=== PATIENT | male | born 1935 | race Caucasian/White ===

== ENCOUNTER → 2017-06-27 11:54 | Outpatient (CLI) | payer OTHER ==
[~2017-06-27] VITALS: Ht 175.3 cm; Wt 85.5 kg
--- NOTE | ~2017-06-27 | HEMODYNAMI ---
PATIENT:DEONDRE SIMS MEDICAL RECORD: [id number] : 33 LOCATION:[facility] ADMISSION DATE: 06/27/17 Generatedon:06/27/201714:53 Patient name: DEONDRE SIMS Patient #: [id number] SSN: D OB: 1935 Date of study: 06/27/2017 Page: Of Hemodynamic Procedure Report Patient Data Patient Demographics Procedure consent was obtained First Name: DEONDRE Gender: Male Last Name: BETHANY : 1935 Middle Initial: R Age: 81 year(s) Patient #: [id number] Race: Unknown Additional ID: [id number] Contact details Address: [address] [place] [address] State: [place] City: [place] Zip code: [address] Past Medical History Allergies: No known allergies Admission Admission Data Admission Date: 06/27/2017 Admission Time: 11:54 Admit Source: Other Lab Results Lab Result Date: 06/27/2017 Lab Result Time: 12:25 Biochemistry Name Units Result Min Max BUN mg/dl 32 --(----)-* 7 18 Creatinine mg/dl 1 --(--*-)-- 0.6 1.3 CBC Name Units Result Min Max Hematocrit % 37.9 *-(----)-- 42 54 Hemoglobin g/dl 12.6 -*(----)-- 13.5 17.5 Procedure Procedure Types Cath Procedure Diagnostic Procedure C Coronaries only Aortic Root Angiography Sedation Charges Moderate Sedation up to 30 minutes Peripheral Cath Diagnostic Procedure 4-Vessel Carotid Cervical Uni Subclavian Arteriogram Uni Procedure Description Procedure Date Procedure Date: 06/27/2017 Procedure Start Time: 14:17 Procedure End Time: 14:52 Procedure Staff Name Function Parveen Aponte MD Performing Physician Aram Adame RT Monitor Rupinder Woods RT Scrub Junaid Armas RN Nurse Procedure Data Cath Procedure Fluoroscopy Diagnostic fluoroscopy Total fluoroscopy Time: 4.4 time: 4.4 min min Diagnostic fluoroscopy Total fluoroscopy dose: 666 dose: 666 mGy mGy Contrast Material Contrast Material Type Amount (ml) Isovue 300 105 Entry Location Entry Primary Successful Side Size Upsize Upsize Entry Closure Ramirez ccessful Closure Location (Fr) 1 (Fr) 2 (Fr) Remarks Device Remarks Radial Right 6 Fr Mechanical artery Short Compression Femoral Right 5 Fr Exoseal artery Estimated blood loss: 5 ml Diagnostic catheters Device Type Used For End Catheter Placement MULTIPACK Pigtail 5 Fr Procedure catheter MULTIPACK JL 4.0 5Fr Procedure catheter MULTIPACK 3DRC 5Fr Procedure catheter MULTIPACK 3DRC 5Fr Procedure catheter DIAGNOSTIC Pritesh 110cm Procedure 5Fr catheter ([id number]) Procedure Complications No complications Procedure Medications Medication Administration Route Dosage 0.9% NaCl I.V. 100 ml/hr Oxygen etCO2 Nasal cannula 2 l/min Heparin Flush Bag added to field 2 bags (1000units/500ml NS) Lidocaine 2% added to field 20 Radial Cocktail added to field 1 syringe (Verapomil 2mg/Nitro 400mcg/Heparin 1500units) Versed I.V. 1 mg Fentanyl I.V. 50 mcg Radial Cocktail I.A. 1 syringe (Verapomil 2mg/Nitro 400mcg/Heparin 1500units) Versed I.V. 0.5 mg Fentanyl I.V. 25 mcg Fentanyl I.V. 25 mcg Versed I.V. 0.5 mg Hemodynamics Rest HGB: 12.6 (g/dl) Heart Rate: 56 (bpm) Snapshots Pre Cath Intra NCS Post Cath Vital Signs Time Heart Resp SPO2 etCO2 NIBP Rhythm Pain Sedation Rate (ipm) (%) (mmHg) (mmHg) Status Level (bpm) 14:12:50 55 15 93 0 118/64(92) NSR 0 (11) 10(A) , No pain 14:17:29 55 13 93 9.7 118/63(94) NSR 0 (11) 10(A) , No pain 14:22:09 56 16 96 33.7 97/50(73) NSR 0 (11) 10(A) , No pain 14:26:42 65 15 96 35.9 112/64(91) NSR 0 (11) 10(A) , No pain 14:31:20 54 14 92 0 104/52(75) NSR 0 (11) 9(A) , No pain 14:35:55 56 9 90 0 110/63(84) NSR 0 (11) 9(A) , No pain 14:40:31 50 10 96 0 106/56(86) NSR 0 (11) 9(A) , No pain 14:45:06 49 13 97 10.4 113/61(87) NSR 0 (11) 9(A) , No pain 14:50:05 50 15 96 26.9 Measuring NSR 0 (11) 9(A) , No pain 14:50:13 51 15 98 29.1 118/61(95) NSR 0 (11) 9(A) , No pain Medications Time Medication Route Dose Verified Delivered Reason Notes Effectiveness by by 14:10:24 0.9% NaCl I.V. 100 Junaid Junaid Per ml/hr Pawel Armas physician RN RN 14:10:34 Oxygen etCO2 2 l/min Junaid Junaid Per Nasal Pawel Armas physician cannula RN RN 14:10:46 Heparin Flush added 2 bags Junaid Junaid used for Bag to Pawel Armas procedure (1000units/500ml RN RN NS) 14:11:04 Lidocaine 2% added 20ml Junaid Junaid for local to vial Lorigan Lorigan anesthetic field MAST RN 14:11:28 Radial Cocktail added 1 Junaid Junaid used for (Verapomil to syringe Pawel Armas procedure 2mg/Nitro field MAST RN 400mcg/Heparin 1500units) 14:15:53 Versed I.V. 1 mg Junaid Junaid for sedation Pawel Armas RN RN 14:16:25 Fentanyl I.V. 50 mcg Junaid Junaid for sedation Pawel Armas RN RN 14:21:53 Radial Cocktail I.A. 1 Junaid Parveen for (Verapomil syringe Pawel subramanian 2mg/Nitro RN 400mcg/Heparin 1500units) 14:25:28 Versed I.V. 0.5 mg Junaid Junaid for sedation Pawel Armas RN RN 14:25:36 Fentanyl I.V. 25 mcg Junaid Junaid for sedation Pawel Armas RN RN 14:27:46 Fentanyl I.V. 25 mcg Junaid Junaid for sedation Pawel Armas RN RN 14:27:55 Versed I.V. 0.5 mg Junaid Junaid for sedation Lorigan Lorigan RN aquatics director Log Time Note 13:53:03 Informed consent obtained and on chart 13:53:07 Admit Source: Other 13:53:35 Diagnostic Cath status Elective 13:53:44 Junaid Armas RN sent for patient. Start room use. 13:53:45 Time tracking: Regular hours (M-F 7:00 - 5:00) 13:53:49 Plan of Care:Hemodynamics will remain stable., Cardiac rhythm will remain stable., Comfort level will be maintained., Respiratory function will remain adequate., Patient/ family verbilizes understanding of procedure., Procedure tolerated without complication., Recovers from procedure without complications.. 13:54:11 H&P Date Dictated: 06/22/2017 Within 30 days and on chart., H&P Addendum completed by physician on day of procedure. (MUST COMPLETE FOR ALL OUTPATIENTS). 13:56:41 Lab Result : Hemoglobin 12.6 g/dl 13:56:41 Lab Result : Creatinine 1 mg/dl 13:56:41 Lab Result : BUN 32 mg/dl 13:56:41 Lab Result : Hematocrit 37.9 % 14:00:00 Patient received from Pre/Post Procedure Room to CCL 1 Alert and oriented. Tansferred to table in Supine position. 14:00:01 Warm blankets applied, and daljit hugger turned on for patient comfort. 14:00:02 Correct patient and procedure confirmed by team. 14:00:03 ECG and BP/O2 sat monitors applied to patient. 14:10:24 0.9% NaCl 100 ml/hr I.V. was administered by Junaid Armas RN; Per physician; 14:10:34 Oxygen 2 l/min etCO2 Nasal cannula was administered by Junaid Armas RN; Per physician; 14:10:46 Heparin Flush Bag (1000units/500ml NS) 2 bags added to field was administered by Junaid Armas RN; used for procedure; 14:11:04 Lidocaine 2% 20ml vial added to field was administered by Junaid Armas RN; for local anesthetic; 14:11:28 Radial Cocktail (Verapomil 2mg/Nitro 400mcg/Heparin 1500units) 1 syringe added to field was administered by Junaid Armas RN; used for procedure; 14:11:55 Vital chart was started 14:11:59 Baseline sample Acquired. 14:12:03 Rhythm: sinus rhythm 14:12:05 Full Disclosure recording started 14:12:07 Pre-procedure instructions explained to patient. 14:12:09 Family in waiting room. 14:12:10 Patient NPO since Midnight. 14:12:37 Patient allergic to No known allergies 14:12:51 Is the patient allergic to Iodine/contrast media? No. 14:12:53 Is patient on blood thinner?No 14:13:00 Patient diabetic? No. 14:13:03 Previous problem with sedation/anesthesia? No . 14:13:04 Snore? Yes 14:13:05 Sleep apnea? No 14:13:06 Deviated septum? No 14:13:07 Opens mouth fully? Yes 14:13:08 Sticks out tongue? Yes 14:13:10 Airway obstruction? No ? 14:13:14 Dentures? No ? 14:13:17 Modified Raman's test Ulnar < 7 seconds 14:13:39 Patient pain scale 0/10 ?. 14:13:48 IV patent on arrival in left forearm with 0.9% NaCl at [facility]. 14:13:50 Lab results completed and on chart. 14:13:53 Right Radial & Right Groin area was prepped with chlora-prep and draped in sterile fashion 14:13:54 Alarms reviewed by R. N. 14:13:57 Sharps counted by scrub and verified by R.N. 14:13:59 Use device set Radial Dx or PCI 14:13:59 ACIST Syringe (38354) opened to sterile field. 14:14:00 Medline Cath Pack ([id number]) opened to sterile field. 14:14:01 ACIST Hand Control (33019) opened to sterile field. 14:14:02 ACIST Manifold (71427) opened to sterile field. 14:14:02 Tegaderm 4 x 4 (1626W) opened to sterile field. 14:14:03 MBrace Wrist Support ([id number]) opened to sterile field. 14:14:04 Bag Decanter (2001S) opened to sterile field. 14:14:05 DIAGNOSTIC WIRE .035 260cm J wire (961232) opened to sterile field. 14:14:08 SHEATH 6Fr Prelude Radial ([id number]) opened to sterile field. 14:14:17 Physician arrived 14:14:18 --------ALL STOP TIME OUT------ 14::18 Final Timeout: patient, procedure, and site verified with staff and physician. All members of the team are in agreement. 14:14:20 Right Radial & Right Groin site verified by team. 14:14:21 Physical assessment completed. ASA score P 2 - A patient with mild systemic disease as per Parveen Aponte MD. 14:14:24 Sedation plan: IV Moderate Sedation Medication:Versed, Fentanyl 14:15:53 Versed 1 mg I.V. was administered by Junaid Armas RN; for sedation; 14:16:25 Fentanyl 50 mcg I.V. was administered by Junaid Armas RN; for sedation; 14:17:13 Zero performed for pressure channel P1 14:17:23 Procedure started. 14:17:27 Local anesthetic to right radial artery with Lidocaine 2% by Parveen Aponte MD.INITIAL ACCESS ONLY 14:20:57 A 6 Fr Short sheath was inserted into the Right Radial artery 14:21:53 Radial Cocktail (Verapomil 2mg/Nitro 400mcg/Heparin 1500units) 1 syringe I.A. was administered by Parveen Aponte MD; for vasodilation; 14:22:10 A DIAGNOSTIC Pritesh 110cm 5Fr catheter (125401) was advanced over the wire and used for Procedure. 14:22:53 Catheter removed. unable to cannulate vessel. 14:24:56 Local anesthetic to right femoral artery with Lidocaine 2% by Parveen Aponte MD.ADDITIONAL ACCESS 14:25:08 SHEATH Prelude 5Fr 0.035 (YSQ-0X-15-035) opened to sterile field. 14:25:26 A 5 Fr sheath was inserted into the Right Femoral artery 14:25:28 Versed 0.5 mg I.V. was administered by Junaid Armas RN; for sedation; 14:25:31 Use device set Multipack Set 14:25:36 Fentanyl 25 mcg I.V. was administered by Junaid Armas RN; for sedation; 14:25:39 DIAGNOSTIC Multipack 5Fr catheter set ([id number]) opened to sterile field. 14:26:55 A MULTIPACK Pigtail 5 Fr catheter was advanced over the wire and used for Procedure. 14:27:46 Fentanyl 25 mcg I.V. was administered by Junaid Armas RN; for sedation; 14:27:55 Versed 0.5 mg I.V. was administered by Junaid Armas RN; for sedation; 14:28:39 Aortic Root visualized 14:31:02 Catheter exchanged over wire. 14:31:36 A MULTIPACK JL 4.0 5Fr catheter was advanced over the wire and used for Procedure. 14:32:32 LCA angiography performed. 14:33:09 Catheter exchanged over wire. 14:33:35 A MULTIPACK 3DRC 5Fr catheter was advanced over the wire and used for Procedure. 14:34:21 RCA angiography performed. 14:35:29 Right subclavian angiography performed 14:43:57 Catheter removed. 14:44:10 TR BAND Standard ([id number]) opened to sterile field. 14:44:17 EXOSEAL 5Fr (EX500) opened to sterile field. 14:46:00 Procedure type changed to Cath procedure, Diagnostic procedure, LHC, Coronaries only, Aortic Root Angiography, Sedation Charges, Moderate Sedation up to 30 minutes, Peripheral Cath Diagnostic Procedure, 4-Vessel, Carotid Cervical Uni, Subclavian Arteriogram Uni 14:46:08 A MULTIPACK 3DRC 5Fr catheter was advanced over the wire and used for Procedure. 14:46:17 Left subclavian angiography performed 14:46:48 Left carotid angiography performed. 14:47:31 Catheter removed. 14:47:39 Sheath removed intact; hemostasis achieved with Exoseal to the Right Femoral artery. 14:47:40 Procedure ended.(Physican Out) 14:47:52 Sheath removed intact; hemostasis achieved with Mechanical Compression to the Right Radial artery. 14:47:58 Fluoroscopy time 04.40 minutes. 14:48:02 Flurop Dose total: 666 14:48:02 Fluoroscopy dose: 666 mGy 14:48:05 Contrast amount:Isovue 300 105ml. 14:48:07 Sharps counted by scrub and verified by R.N. 14:48:09 TR band inflated with 12cc of air. 14:48:11 Insertion/operative site no bleeding no hematoma. 14:48:14 Post-op/insertion site Right Femoral artery dressed using a 4 x 4 and Tegaderm. 14:48:17 Post right femoral artery:stable, soft, clean and dry 14:48:18 Post Procedure Pulses reassessed and unchanged 14:48:22 Post-procedure physical assessment completed. ASA score P 2 - A patient with mild systemic disease as per Parveen Aponte MD. 14:48:25 Post procedure rhythm: unchanged. 14:48:28 Estimated blood loss: 5 ml 14:48:29 Post procedure instruction explained to patient.Patient verbalizes understanding. 14:48:30 Patient needs reinforcement of post procedure teaching. 14:51:45 Procedure and supply charges have been captured, reviewed, submitted and are correct. 14:52:36 Procedure Complication : No complications 14:52:39 Vital chart was stopped 14:52:39 See physician's report for complete and final results. 14:52:41 Report given to Pre/Post Procedure Room. 14:52:43 Patient transfered to Pre/Post Procedure Room with Stretcher. 14:52:45 Procedure ended. 14:52:45 Full Disclosure recording stopped 14:52:51 End room use (Document Last) Device Usage Item Name Manufacture Quantity Catalog Number Hospital Part Current M inimal Lot# / Charge Number Stock Stock Serial# Code ACIST Syringe Acist 1 [id number] [id number] 516016 975162 2 0 (33438) [employer] Medline Cath Cardinal 1 [id number] 653158 89789 863209 5 Pack Health ([id number]) ACIST Hand Acist 1 69593 167866 763711 070856 5 Control (19416) [employer] Inc ACIST Manifold Acist 1 20677 980121 017921 258080 5 (46133) [employer] Systems Inc Tegaderm 4 x 4 3M 1 1626W 360377 593507 854907 5 (1626W) MBrace Wrist Advanced 1 140-0250-00 400890 21601 013252 5 Support Vascular ([id number]) Dynamics Bag Decanter Microtek 1 2001S 132430 57296 292422 5 (2001S) Medical Inc. DIAGNOSTIC WIRE St Serjio 1 791165 320403 774750 867049 3 0 .035 260cm J wire (347041) SHEATH 6Fr Merit 1 [id number] 643304 169257 714156 5 Prelude Radial Medical ([id number]) SHEATH Prelude Merit 1 IQF-4H-14-035 585727 212775 864502 5 5Fr 0.035 Medical (GNH-9N-85-035) DIAGNOSTIC Cardinal 1 [id number] 347353 23479 322036 3 0 Multipack 5Fr Health catheter set (WU0851) MULTIPACK Cardinal 1 105876 5 Pigtail 5 Fr Health catheter MULTIPACK JL Cardinal 1 033181 5 4.0 5Fr Health catheter MULTIPACK 3DRC Cardinal 1 488102 5 5Fr catheter Health TR BAND Terumo 1 [id number] 888607 187261 477962 4 0 Standard ([id number]) EXOSEAL 5Fr Cardinal 1 EX500 245164 452893 792049 1 0 (EX500) Health DIAGNOSTIC Terumo 1 82-3661 031416 748109 209081 5 Pritesh 110cm 5Fr catheter (813628) Signature Audit [place] Stage Time Signature Unsigned Intra-Procedure 06/27/2017 Aram Adame 2:53:29 PM RT(R) Signatures Monitor : Aram Adame RT Signature : Date : Time : [place] [id number] [place] [address]
[~2017-06-27 11:54] MED LIST: ASPIRIN81 MG PO; COLACE100 MG PO; CORDARONE200 MG PO; DIOVAN160 MG PO; HCTZ25 MG PO; HEMOCYTE PLUS C1 CAP PO; K-TAB10 MEQ PO; NORVASC5 MG PO; PERCOCET 5-3251 TAB PO; PROTONIX40 MG PO; SYNTHROID25 MCG PO
[2017-06-27 12:25] VITALS: BP 145/66; Ht 175.3 cm; Wt 85.5 kg
[2017-06-27 12:33] LABS: BASOPHILS 0.4 % (0-2); EOSINOPHILS 1.5 % (0-7); HEMATOCRIT 37.9 % (42.0-54.0); HEMOGLOBIN 12.6 g/dL (13.5-17.5); IMMATURE GRANULOCYTES 0.4 % (0-5); MCH 29.2 pg (26.0-34.0); MCHC 33.2 g/dL (31.0-37.0); MCV 87.7 fL (80.0-100.0); MEAN PLATELET VOLUME 10.3 fL (7.4-10.4); MONOCYTES 10.9 % (2-11); NEUTROPHILS 71.8 % (40-80); PLATELET COUNT 154 10x3/uL (130-400); RBC 4.32 10x6/uL (4.20-6.10); RDW 14.1 % (11.5-14.5); WBC 5.3 10x3/uL (4.8-10.8)
[2017-06-27 12:41] LABS: CALC OSMOLALITY 277 mosm/kg (275-300); CALCIUM 8.7 mg/dL (8.5-10.1); CARBON DIOXIDE 23.8 mmol/L (21.0-32.0); CHLORIDE - SERUM 103 mmol/L (98-107); GLUCOSE 87 mg/dL (74-106); POTASSIUM - SERUM 4.6 mmol/L (3.5-5.1); SODIUM 136 mmol/L (136-145); UREA NITROGEN 32 mg/dL (7-18); eGFR NON AFRICAN AMERICAN 76 mL/min (90-120)
== END | disposition home or self-care (01) ==
LOC: D.CATH 11:54
PROVIDERS: Internal Medicine Cardiovascular Disease
DX: I35.2 Nonrheumatic aortic (valve) stenosis with insufficiency (principal); I25.10 Atherosclerotic heart disease of native coronary artery without angina pectoris; I65.21 Occlusion and stenosis of right carotid artery; Z01.812 Encounter for preprocedural laboratory examination

== ENCOUNTER → 2017-07-14 12:19 | Outpatient (CLI) | payer OTHER ==
[2017-06-27 12:25] VITALS: BMI 27.8
== END | disposition home or self-care (01) ==
LOC: D.CT 12:19
DX: I77.1 Stricture of artery (principal)

== ENCOUNTER 2017-07-15 11:00 | Inpatient (IN) | payer OTHER ==
[~2017-07-15] VITALS: Ht 175.3 cm; Wt 90.9 kg
--- NOTE | ~2017-07-15 | OP ---
PATIENT NAME: DEONDRE SIMS MEDICAL RECORD: [id number] :33 LOCATION:D.I D.CV06 ADMISSION DATE:07/20/17 SURGEON: JALEN CEVALLOS MD DATE OF OPERATION: 07/20/2017 SURGEON: Jalen Cevallos MD MAINTENANCE DEPARTMENT TECHNICIAN: Nolvia Anaya MD and TIFFANIE Clark OPERATION PERFORMED: 1. Aortic valve replacement with 21 mm pericardial bioprosthesis. 2. Coronary artery bypass graft times 2 (left internal mammary artery to LAD and reverse saphenous vein graft from aorta to first obtuse marginal). PREOPERATIVE DIAGNOSIS: Coronary artery disease and aortic stenosis, aortic insufficiency. POSTOPERATIVE DIAGNOSIS: Coronary artery disease and aortic stenosis, aortic insufficiency. ANESTHESIA: General endotracheal anesthesia. ESTIMATED BLOOD LOSS: Total cardiopulmonary bypass with Cell Saver retransfusion 1 pack platelets. No packed red blood cells transfused. OPERATIVE SPECIMEN: Aortic valve leaflets. COMPLICATIONS: None. CONDITION: Stable. DISPOSITION: CV ICU. OPERATIVE FINDINGS: 1. Transesophageal echocardiography confirmed aortic stenosis and aortic insufficiency with mild mitral regurgitation. 2. Good quality left internal mammary artery, the LAD was a severely diseased vessel throughout the mid portion with the best site for anastomosis about 2 cm from the apex. At this site after opening the artery, a 1 mm probe would not pass proximally in the vessel more than about 0.5 cm, a 1.5 mm probe did pass from here down to the apex and there was good Doppler flow after anastomosis and after removing the cross clamp. 3. The second obtuse marginal was much smaller than the first and non-bypassable. The first vessel was a 2.5 mm severely diseased vessel. 4. Aortic valve leaflets were calcified. The annulus was mostly preserved. Some debridement was necessary. Interrupted pledgeted valve sutures from the ventricular to the aortic side were used. 5. Transesophageal echocardiography at the conclusion of the case revealed no perivalvular aortic leak. OPERATIVE INDICATION: Aortic stenosis, coronary artery disease with near syncope, possible palpitations. OPERATIVE SUMMARY IN DETAIL: The patient was brought to the operative suite. General anesthesia was obtained. The patient was prepped and draped. Greater OPERATIVE REPORT [id number] DEONDRE SIMS saphenous vein was harvested in the right leg using bridging incisions, side branches were clipped or tied. Leg was irrigated and closed after placement of a drain. Median sternotomy incision was made. Subcutaneous tissue divided by electrocautery. The sternum was divided with a saw. The left hemisternum was elevated. The left pleural cavity was entered. Left internal mammary vein was taken as a pedicle graft. The sternal retractor was placed. Pericardium was opened. Heparin was given. The aorta was cannulated. Dual-stage venous cannula was inserted. The internal mammary was clipped distally and made ready for anastomosis. The patient was placed on cardiopulmonary bypass. The sites for distal anastomoses were selected. Retrograde cardioplegia cannula was inserted. The patient was cooled. Crossclamp was placed. The angiographic needle was used in the anterior ascending aorta; however, due to aortic insufficiency. This was aborted and retrograde cardioplegia was given. The left ventricular vent was placed to the right superior pulmonary vein and then the transverse aortotomy was performed. Direct coronary cardioplegia was given in the left and right coronary ostia. Distal anastomosis of the vein to artery was performed in standard technique. Then, the valve was debrided after removing the leaflets carefully irrigated to remove all loose debris, sized appropriately. Suture was placed for ventricular aortic side, through the valve sewing ring valve carefully lowered in place and sutures tied. Inspecting the bowel, there was no subvalvular obstruction. The valve was well seated. The aortotomy was closed. The patient was rewarmed. Distal anastomosis to the left internal mammary artery to LAD was performed. A single punch site was used for proximal anastomosis and with the patient in steep Trendelenburg position, left ventricular apex was de-aired before and after removing the crossclamp and the crossclamp was removed. The proximal anastomosis site was tied down. The old deair site was later oversewn. The patient resumed a spontaneous rhythm. Fully rewarmed, weaned cardiopulmonary bypass and was stable. The patient was decannulated. All cannulation sites were oversewn. Protamine was given. The grafts lay appropriately. Thorough irrigation was undertaken. Ventricular pacing wires were placed. Drains were placed in the mediastinum, left pleural cavity. Pericardial fat was loosely reapproximated. Left chest was evacuated and irrigated. The internal mammary harvest site was without bleeding. Sternum was closed with wires. The patient was stable. The chest closed. Fascia was closed. Subcutaneous tissue was closed. Skin was closed. Dermabond was placed. The needle, sponge counts were reported as correct. The patient was taken to the ICU in stable condition. TRANSINT:[id number] Voice Confirmation ID: [id number] DOCUMENT ID: [id number] JALEN CEVALLOS MD at 1109 CC: MAYA SUTTON M.D. [id number] DICTATION DATE: 07/20/171705 CAPTAIN CANNERY TENDER: 07/21/17 0006 ADM IN [facility] [address] [place] [address]
--- NOTE | ~2017-07-15 | TEE ---
PATIENT:DEONDRE SMIS MEDICAL RECORD: [id number] LOCATION:[place] [address] AGE OF PATIENT: 82 ADMISSION DATE: 07/20/17 SEX: M REFERRING PHYSICIAN: INTERPRETING PHYSICIAN: RENETTA SELF MD TRANSESOPHAGEAL ECHOCARDIOGRAM Date: 07/20/17 [place] CHARGE Y INDICATIONS: CABG/AVR PREMEDICATIONS: PATIENT'S RESPONSE PROCEDURE DOPPLER MEASUREMENTS: LVIT LA PA RA LVOT RVOT Asc. Ao AV Gradient Peak AV Mean AV Area MV Gradient Peak MV Mean MV Area INTERPRETATION: Doppler: 2-D: COLOR FLOW DOPPLER NORMAL SALINE STUDY: MISCELLANOUS: DIAGNOSIS: PLAN: Pairer Inspector:2 Dr. Aponte Transformation Analyst: 1 GRAEMEMARY KIM COMMENTS: DATE OF SERVICE: 07/20/2017 PROCEDURE: Transesophageal echo evaluation of valvular structures during aortic valve replacement and coronary bypass graft surgery. FINDINGS: 1. Left ventricular chamber size is within normal limits. Left ventricular systolic function is normal. Overall ejection fraction estimated at 60%. 2. Left atrium, right atrium, and right ventricle chamber sizes are mildly TRANSESOPHAGEAL ECHOCARDIOGRAM REPORT [id number] WILBERT SIMS dilated. 2. Valvular structures: Aortic valve demonstrates severe calcific aortic stenosis. This is not a new finding. The patient is scheduled for aortic valve replacement. The remaining valvular structures have normal structure and motion. 3. Doppler interrogation elsewise reveals mild mitral regurgitation, moderate aortic insufficiency. No other valvular insufficiency or stenosis. 4. No evidence of pericardial effusion or left ventricular thrombus. TRANSINT:[id number] Voice Confirmation ID: [id number] DOCUMENT ID: [id number] at 1444 CC: [id number] DICTATION DATE: 07/20/17 1554 MEDICAL RECORD CODER: 07/21/17 1232 ADM IN [facility] [address] [place] [address]
--- NOTE | ~2017-07-15 | EC ---
PATIENT:DEONDRE SIMS DATE OF SERVICE: 07/20/17 SEX: M MEDICAL RECORD: [id number] DATE OF : 33 LOCATION:[facility] D.230 AGE OF PATIENT: 82 ADMISSION DATE: 07/20/17 REFERRING PHYSICIAN: INTERPRETING PHYSICIAN: RENETTA SELF MD ECHOCARDIOGRAM REPORT ECHO CHARGES 4 ECHO COMPLETE Date: 07/29 CLINICAL DIAGNOSIS: LVF,PERICARDIAL EFFUSION,POST CABG ECHOCARDIOGRAPHIC MEASUREMENTS (adult normal given) AC root (d.<3.7cm) 3.7 cm LV Septum d (<1.2 cm> 1.5 cm Valve Excursion 1.6 cm LV Septum (systole) 1.8 cm Left Atria (s.<4.0cm> 3.9 cm LVPW d(<1.2cm) 1.7 cm RV (d.<2.3cm) 3.9 cm LVPW (sytole) 2.4 cm LV diastole(<5.6CM) 5.2 cm MV E-F(>70mm/sec) cm LV systole 2.6 cm LVOT Diameter 1.8 cm MV exc.(>10mm) 1.7 cm Est.ejection fraction (50-75%) % DOPPLER: LVIT cm/sec A 75.0 cm/sec E 99.0 cm/sec LA cm/sec RVSP 28 mmHg LVOT 90 cm/sec AOP1/2T m/s Asc. Ao 147 cm/sec RVOT 96 cm/sec RA cm/sec PA 130 cm/sec AV Gradient Peak 8.69 mmHg AV Mean 5.25 mmHg AV Area 1.5 cm MV Gradient Peak 7.17 mmHg MV Mean 2.04 mmHg MV Area cm COMMENTS: Liner Helper: Connor JAIN Supervisor Cell Maintenance: 2 Dr. Aponte TAPE# PACS Pericardial Effusion N DATE OF SERVICE: 07/29/2017 Echocardiogram FINDINGS: 1. Left ventricular chamber size is within normal limits. Left ventricular systolic function is normal. Overall ejection fraction estimated at 60%. 2. The left atrium is mildly dilated at 4.1 cm. Right atrium and right ventricular chamber sizes are as well mildly dilated. 3. Valvular structures have normal structure and motion. ECHOCARDIOGRAM REPORT [id number] DEONDRE SIMS 4. Doppler interrogation reveals mild tricuspid regurgitation, no other valvular insufficiency or stenosis. 5. No evidence of pericardial effusion or left ventricular thrombus. TRANSINT:[id number] Voice Confirmation ID: [id number] DOCUMENT ID: [id number] RENETTA SELF MD at 1711 CC: [id number] DICTATION DATE: 07/29/17 1050 STRUCTURAL TEST ENGINEER: 07/29/17 1112 DIS IN 07/29/17 [facility] [address] [place] [id number]
--- NOTE | ~2017-07-15 | HP ---
PATIENT: DEONDRE SIMS MEDICAL RECORD: [id number] ACCOUNT: [id number] LOCATION:[facility] : 34 ADMISSION DATE: 07/20/17 HISTORY AND PHYSICAL EXAMINATION DEONDRE Cardenas (81yo, M) ID# [id number]. Date/Time07/13/2017 11:34LCDZB17/10/1936Service Dept.NPP_[facility] ClinicProviderVICKY CEVALLOS MDInsuranceMed Primary: [employer] MD [employer] WELLNESS (MEDICARE REPLACEMENT/ADVANTAGE - HMO) Insurance # : [id number] Referring Provider Name : MAITE GALEANO Employer Name : [employer]\ Prescription: CMX - Member is eligible. Chief Complaint Coronary artery disease Followup: Aortic valve stenosis CAD/ Patient's Care Team Referring Provider (): MAITE GALEANO: [address] [phone], , Referring Provider: MAYA SUTTON MD: [address] [place] [phone], , Patient's Pharmacies [facility] ([facility]): [address] [facility] [address], , Vitals BP:132/70 sitting L arm 07/13/2017 11:16 am 138/80 sitting R arm 07/13/2017 11:17 amBP Cuff Size:adult 07/13/2017 11:16 am adult 07/13/2017 11:17 amHR:60,reg,murmur 07/13/2017 11:17 amHt:5 ft 9 in 07/13/2017 11:17 amWt:185 lbs 07/13/2017 11:17 amNotes:here for CAD/ workup. Has had progressive shortness of breath and activity intolerance. He lost his 17 months ago and attributed this to stress from her passing. Became hypertensive, began w/u for that, here he is. 07/13/2017 11:21 amBMI:27.3 07/13/2017 11:17 amAllergies Reviewed Allergies NKDASULFA IS NOT EFFECTIVEMedications Reviewed Medications amLODIPine 5 mg dylzva15/06/18 filledCaremarkhydroCHLOROthiazide 25 mg /30/18 filledCaremarklisinopril 10 mg nbabrq88/30/18 filledCaremarkvalsartan 160 mg /06/18 filledCaremarkProblems Reviewed Problems Essential hypertension Coronary arteriosclerosis Aortic valve stenosis Family History Reviewed Family History Social History Reviewed Social History Cardiology and General Smoking Status: Unknown if ever smoked High blood pressure: Y Diabetes: N Surgical History Reviewed Surgical History HISTORY AND PHYSICAL [id number] DEONDRE SIMS CARDIAC CATHETERIZATION 06/27/17 HERENIA REPAIR KNEE ELBOW ROTATOR CUFF Past Medical History Reviewed Past Medical History Angina: Y Chest Pain: Y Coronary Artery Disease: Y H eart Disease: Y High Blood Pressure: Y Hypertension: Y Shortness of Breath: Y Valve disease: Y - MODERATE AORTIC INSUFFICIENCY Documents for Discussion N/A Screening None recorded. HPI Valvular Heart Disease Reported by patient. Context: aortic stenosis Associated Symptoms: dyspnea Notes: no cp, but progressive SOB and some dizziness with exertion cardiac catheter and echo with aortic stenosis and coronary artery disease including left main coronary stenosis The patient reports that with recent yardwork and prior to that loading some vending machines [place] the horse [place], he had significant dyspnea with no angina but with near syncope without palpitations The catheter revealed a calcified circular area on the inferior portion of the distal innominate artery ROS Additionally reports: as reviewed in the chart with the patient ROS as noted in the HPI Physical Exam Patient is an 81-year-old male. Constitutional: General Appearance well nourished and developed and healthy-appearing. Level of Distress NAD. Ambulation ambulating normally. Cardiovascular: Apical Impulse not displaced or no thrill. Heart Auscultation no rubs or gallops and RRR; systolic ejection murmur over the entire precordium. Arterial Pulses no abdominal aorta bruits, femoral bruits, or popliteal bruits and 2+ bilateral, carotid 2+ bilateral, femoral 2+ bilateral, popliteal 2+ bilateral, and dorsalis pedis 2+ bilateral. Edema no edema. Lungs: Repiratory Effort no dyspnea. Percussion no hyperresonance or dullness or flatness. Auscultation no wheezing, rhonchi, or rales / crackles and breathing sounds normal, good air movement, and CTA except as noted. Abdomen: Bowl Sounds normal. Inspection and Palpation no tenderness, guarding, lisette s, or rebound tenderness and soft and non-distended. Liver non-tender and no hepatomegaly. Spleen non-tender and no splenomegaly. Hernia none palpable. HISTORY AND PHYSICAL [id number] DEONDRE SIMS Musculoskeletal System: Gait And Stance normal gait and stance. Digits and Nails normal nails and no cyanosis. Neurologic: Cranial Nerves grossly intact. Reflexes DTRs 2+ bilaterally throughout. Sensation grossly intact. Lymph Nodes: Lymph Nodes no cervical LAD, supraclavicular LAD, axillary LAD, or inguinal LAD. Eyes: Lids and Conjunctivae no discharge or pallor and non-injected. Pupils PERRLA. Cornea grossly intact. EOM EOMI. Lens clear. Sclerae non-icteric. Neck: Neck no masses, enlarged lymph nodes, or carotid bruits and supple and trachea midline. Thyroid no enlargement or nodules and non-tender. Skin: Inspection and Palpation no rash, lesions, ulcers, jaundice, or abnormal nevi. Assessment / Plan 1. Coronary arteriosclerosis I25.10: Atherosclerotic heart disease of [place] coronary artery without angina pectoris 2. Aortic valve stenosis I35.0: Nonrheumatic aortic (valve) stenosis AORTIC VALVE STENOSIS: CARE INSTRUCTIONS Patient Instructions will need contrasted CT chest to evaluate the calcified area of the innominate artery, which may represent a thrombosed small saccular aneurysm. Discussion Notes due to increasing symptoms he is a good candidate for aortic valve replacement and coronary bypass graft. We discussed valve options and he elects a bioprosthesis. We discussed the rationale for surgery, the alternatives, the benefits, and the risks, and we also discussed these by phone with his daughter from [place]. He gives consent VICKY CEVALLOS MD at 1328 CC: [id number] DICTATION DATE: 07/13/17 1100 SURGICAL LEAD: 07/15/17 [address] [facility] [address] [place] [address]
[~2017-07-15 11:00] MED LIST changes: -ASPIRIN81 MG PO; -COLACE100 MG PO; -CORDARONE200 MG PO; -HEMOCYTE PLUS C1 CAP PO; -K-TAB10 MEQ PO; -PERCOCET 5-3251 TAB PO; -PROTONIX40 MG PO; -SYNTHROID25 MCG PO
[2017-07-15 12:05] LABS: APPEARANCE CLEAR (CLEAR); BILIRUBIN NEGATIVE (NEGATIVE); COLOR YELLOW (YELLOW); GLUCOSE NEGATIVE (NEGATIVE); KETONE NEGATIVE (NEGATIVE); NITRITE NEGATIVE (NEGATIVE); PROTEIN NEGATIVE (NEGATIVE); SPECIFIC GRAVITY 1.015 (1.005-1.020); UROBILINOGEN NORMAL (NORMAL)
[2017-07-15 12:09] LABS: BASOPHILS 0.6 % (0-2); EOSINOPHILS 5.2 % (0-7); HEMATOCRIT 39.7 % (42.0-54.0); HEMOGLOBIN 13.2 g/dL (13.5-17.5); IMMATURE GRANULOCYTES 0.3 % (0-5); LYMPHOCYTES 30.5 % (15-50); MCH 29.3 pg (26.0-34.0); MCHC 33.2 g/dL (31.0-37.0); MEAN PLATELET VOLUME 9.9 fL (7.4-10.4); MONOCYTES 14.8 % (2-11); NEUTROPHILS 48.6 % (40-80); PLATELET COUNT 149 10x3/uL (130-400); RBC 4.51 10x6/uL (4.20-6.10); WBC 3.3 10x3/uL (4.8-10.8)
[2017-07-15 12:21] LABS: APTT 27.6 SECONDS (22.8-39.4); INR 1.04 (0.85-1.17); PROTIME 13.2 SECONDS (11.6-15.0)
[2017-07-15 12:59] LABS: ALBUMIN 4.1 g/dL (3.4-5.0); ANION GAP 8.8 mmol/L (8-16); BILIRUBIN - TOTAL 0.33 mg/dL (0.2-1.3); CALCIUM 8.9 mg/dL (8.5-10.1); CARBON DIOXIDE 31.5 mmol/L (21.0-32.0); CREATININE - SERUM 1.1 mg/dL (0.6-1.3); PHOSPHOROUS 3.3 mg/dL (2.5-4.9); POTASSIUM - SERUM 4.3 mmol/L (3.5-5.1); PROTEIN - SERUM 7.8 g/dL (6.4-8.2); T4 THYROXIN - FREE 0.75 ng/dL (0.76-1.46); THYROID STIMULATING HORMONE 1.65 uIU/mL (0.36-3.74); URIC ACID 6.8 mg/dL (2.6-7.2)
[2017-07-20] VITALS (48 sets, daily range): BP systolic 86–172; BP diastolic 47–93; BMI 29.7
[2017-07-20 07:45] LABS: PLT FUNCT.(P2Y12) PLAVIX 316 PRU (194-418)
[2017-07-20 14:13] LABS: HEMATOCRIT 31.5 % (42.0-54.0); HEMOGLOBIN 10.4 g/dL (13.5-17.5); MCH 28.3 pg (26.0-34.0); MCV 85.8 fL (80.0-100.0); MEAN PLATELET VOLUME 9.4 fL (7.4-10.4); RBC 3.67 10x6/uL (4.20-6.10); RDW 14.2 % (11.5-14.5); WBC 10.7 10x3/uL (4.8-10.8)
[2017-07-20 14:25] LABS: APTT 33.5 SECONDS (22.8-39.4); INR 1.54 (0.85-1.17)
[2017-07-20 14:29] LABS: CALC OSMOLALITY 291 mosm/kg (275-300); CALCIUM 7.2 mg/dL (8.5-10.1); CARBON DIOXIDE 24.7 mmol/L (21.0-32.0); CHLORIDE - SERUM 109 mmol/L (98-107); GLUCOSE 142 mg/dL (74-106); SODIUM 143 mmol/L (136-145); UREA NITROGEN 26 mg/dL (7-18); eGFR NON AFRICAN AMERICAN 76 mL/min (90-120)
[2017-07-21] VITALS (61 sets, daily range): BP systolic 85–135; BP diastolic 44–68; Ht 175.3 cm; Wt 90.9 kg
[2017-07-21 05:43] LABS: HEMATOCRIT 28.9 % (42.0-54.0); HEMOGLOBIN 9.6 g/dL (13.5-17.5); MCHC 33.2 g/dL (31.0-37.0); MCV 87.3 fL (80.0-100.0); RBC 3.31 10x6/uL (4.20-6.10); RDW 14.9 % (11.5-14.5); WBC 11.1 10x3/uL (4.8-10.8)
[2017-07-21 06:04] LABS: ALBUMIN 2.6 g/dL (3.4-5.0); ANION GAP 13.8 mmol/L (8-16); BILIRUBIN - TOTAL 0.51 mg/dL (0.2-1.3); CALCIUM 7.8 mg/dL (8.5-10.1); CARBON DIOXIDE 24.8 mmol/L (21.0-32.0); POTASSIUM - SERUM 4.6 mmol/L (3.5-5.1); PROTEIN - SERUM 4.9 g/dL (6.4-8.2)
[2017-07-21 06:06] LABS: CREATININE - SERUM 1.3 mg/dL (0.6-1.3)
[2017-07-22] VITALS (54 sets, daily range): BP systolic 59–138; BP diastolic 25–67
[2017-07-22 04:28] LABS: HEMATOCRIT 25.5 % (42.0-54.0); HEMOGLOBIN 8.3 g/dL (13.5-17.5); MCH 28.6 pg (26.0-34.0); MCHC 32.5 g/dL (31.0-37.0); MCV 87.9 fL (80.0-100.0); MEAN PLATELET VOLUME 9.6 fL (7.4-10.4); RBC 2.9 10x6/uL (4.20-6.10); RDW 14.9 % (11.5-14.5); WBC 11.5 10x3/uL (4.8-10.8)
[2017-07-22 04:41] LABS: ALBUMIN 2.4 g/dL (3.4-5.0); ANION GAP 12.4 mmol/L (8-16); BILIRUBIN - TOTAL 0.41 mg/dL (0.2-1.3); CALCIUM 7.4 mg/dL (8.5-10.1); CARBON DIOXIDE 26.3 mmol/L (21.0-32.0); CREATININE - SERUM 1.1 mg/dL (0.6-1.3); POTASSIUM - SERUM 3.7 mmol/L (3.5-5.1); PROTEIN - SERUM 5.2 g/dL (6.4-8.2)
[2017-07-23] VITALS (54 sets, daily range): BP systolic 82–122; BP diastolic 42–61
[2017-07-23 06:15] LABS: HEMATOCRIT 23.5 % (42.0-54.0); HEMOGLOBIN 7.7 g/dL (13.5-17.5); MCH 28.5 pg (26.0-34.0); MCHC 32.8 g/dL (31.0-37.0); MEAN PLATELET VOLUME 10.4 fL (7.4-10.4); RBC 2.7 10x6/uL (4.20-6.10); RDW 15.1 % (11.5-14.5)
[2017-07-23 06:23] LABS: WBC 8.3 10x3/uL (4.8-10.8)
[2017-07-23 06:45] LABS: ALBUMIN 2.3 g/dL (3.4-5.0); ANION GAP 8.5 mmol/L (8-16); BILIRUBIN - TOTAL 0.4 mg/dL (0.2-1.3); CALCIUM 7.7 mg/dL (8.5-10.1); CARBON DIOXIDE 28.6 mmol/L (21.0-32.0); CREATININE - SERUM 1.1 mg/dL (0.6-1.3); POTASSIUM - SERUM 4.1 mmol/L (3.5-5.1); PROTEIN - SERUM 5.3 g/dL (6.4-8.2)
[2017-07-24] VITALS (36 sets, daily range): BP systolic 85–126; BP diastolic 40–80
[2017-07-24 06:18] LABS: HEMOGLOBIN 7.6 g/dL (13.5-17.5); MCH 28.7 pg (26.0-34.0); MCV 86.8 fL (80.0-100.0); MEAN PLATELET VOLUME 9.5 fL (7.4-10.4); RBC 2.65 10x6/uL (4.20-6.10); RDW 15.2 % (11.5-14.5); WBC 6.6 10x3/uL (4.8-10.8)
[2017-07-24 06:42] LABS: ALBUMIN 2.2 g/dL (3.4-5.0); ANION GAP 9.8 mmol/L (8-16); BILIRUBIN - TOTAL 0.45 mg/dL (0.2-1.3); CALCIUM 7.8 mg/dL (8.5-10.1); CARBON DIOXIDE 28.3 mmol/L (21.0-32.0); CREATININE - SERUM 1.1 mg/dL (0.6-1.3); POTASSIUM - SERUM 4.1 mmol/L (3.5-5.1); PROTEIN - SERUM 5.4 g/dL (6.4-8.2)
[2017-07-25] VITALS (23 sets, daily range): BP systolic 89–135; BP diastolic 44–80
[2017-07-25 06:34] LABS: ALBUMIN 2.1 g/dL (3.4-5.0); ALKALINE PHOSPHATASE 35 U/L (46-116); ALT (SGPT) 22 U/L (10-68); CALC OSMOLALITY 279 mosm/kg (275-300); CALCIUM 7.8 mg/dL (8.5-10.1); CARBON DIOXIDE 27.7 mmol/L (21.0-32.0); CHLORIDE - SERUM 103 mmol/L (98-107); GLUCOSE 123 mg/dL (74-106); POTASSIUM - SERUM 4.2 mmol/L (3.5-5.1); PROTEIN - SERUM 5.4 g/dL (6.4-8.2); SODIUM 136 mmol/L (136-145); UREA NITROGEN 33 mg/dL (7-18); eGFR NON AFRICAN AMERICAN 76 mL/min (90-120)
[2017-07-25 07:08] LABS: HEMATOCRIT 26.7 % (42.0-54.0); MCH 28.6 pg (26.0-34.0); MCHC 33.7 g/dL (31.0-37.0); MEAN PLATELET VOLUME 9.5 fL (7.4-10.4); RBC 3.15 10x6/uL (4.20-6.10); WBC 6.8 10x3/uL (4.8-10.8)
[2017-07-25 07:21] LABS: MCV 84.8 fL (80.0-100.0)
[2017-07-26] VITALS (22 sets, daily range): BP systolic 91–131; BP diastolic 48–74
[2017-07-27] VITALS (24 sets, daily range): BP systolic 104–147; BP diastolic 52–75
[2017-07-27 07:41] LABS: BASOPHILS 0.2 % (0-2); EOSINOPHILS 2.9 % (0-7); HEMATOCRIT 28.9 % (42.0-54.0); HEMOGLOBIN 9.4 g/dL (13.5-17.5); IMMATURE GRANULOCYTES 1.1 % (0-5); LYMPHOCYTES 11.5 % (15-50); MCHC 32.5 g/dL (31.0-37.0); MEAN PLATELET VOLUME 9.7 fL (7.4-10.4); MONOCYTES 9.8 % (2-11); NEUTROPHILS 74.5 % (40-80); PLATELET COUNT 125 10x3/uL (130-400); RBC 3.36 10x6/uL (4.20-6.10); RDW 15.7 % (11.5-14.5); WBC 6.5 10x3/uL (4.8-10.8)
[2017-07-27 07:55] LABS: CALC OSMOLALITY 278 mosm/kg (275-300); CALCIUM 8.3 mg/dL (8.5-10.1); CARBON DIOXIDE 28.1 mmol/L (21.0-32.0); CHLORIDE - SERUM 103 mmol/L (98-107); CREATININE - SERUM 0.9 mg/dL (0.6-1.3); GLUCOSE 98 mg/dL (74-106); POTASSIUM - SERUM 4.6 mmol/L (3.5-5.1); SODIUM 137 mmol/L (136-145); UREA NITROGEN 27 mg/dL (7-18); eGFR NON AFRICAN AMERICAN 85 mL/min (90-120)
[2017-07-28] VITALS (27 sets, daily range): BP systolic 94–163; BP diastolic 47–87
[2017-07-29] VITALS (11 sets, daily range): BP systolic 97–140; BP diastolic 51–97
[2017-07-29] MEDS ORDERED: HEMOCYTE PLUS C1 CAP PO (14:44)
[2017-07-29] MEDS ORDERED: CORDARONE200 MG PO (14:45)
[2017-07-29] MEDS ORDERED: ASPIRIN81 MG PO (14:50)
[2017-07-29] MEDS ORDERED: PERCOCET 5-3251 TAB PO (14:51)
[2017-07-29] MEDS ORDERED: K-TAB10 MEQ PO (15:05)
[2017-07-29] MEDS ORDERED: COLACE100 MG PO (15:06)
[2017-07-29] MEDS ORDERED: PROTONIX40 MG PO (15:07)
[2017-07-29] MEDS ORDERED: SYNTHROID25 MCG PO (15:07)
== END 2017-07-29 15:30 | DRG 220 ==
LOC: D.SDCHOLD 11:30 → D.ICU 07-20 05:05 → D.CVICU 07-20 05:05 → D.SDCHOLD 07-20 07:30 → D.CVICU 07-20 10:31 → D.SDCHOLD 07-20 11:30 → D.ICU 07-28 15:48
PROVIDERS: Thoracic Surgery (Cardiothoracic Vascular Surgery)
PROC: 021009W Bypass Coronary Artery, One Artery from Aorta with Autologous Venous Tissue, Open Approach (ICD-10-PCS; 2017-07-20)
PROC: 06BP0ZZ Excision of Right Saphenous Vein, Open Approach (ICD-10-PCS; 2017-07-20)
PROC: 5A1221Z Performance of Cardiac Output, Continuous (ICD-10-PCS; 2017-07-20)
PROC: B24BZZ4 Ultrasonography of Heart with Aorta, Transesophageal (ICD-10-PCS; 2017-07-20)
PROC: 02100Z9 Bypass Coronary Artery, One Artery from Left Internal Mammary, Open Approach (ICD-10-PCS; principal; 2017-07-20 07:30)
PROC: 02RF08Z Replacement of Aortic Valve with Zooplastic Tissue, Open Approach (ICD-10-PCS; 2017-07-20 07:30)
DX: I35.2 Nonrheumatic aortic (valve) stenosis with insufficiency (principal); D62 Acute posthemorrhagic anemia; R33.9 Retention of urine, unspecified; N40.0 Benign prostatic hyperplasia without lower urinary tract symptoms; I25.10 Atherosclerotic heart disease of native coronary artery without angina pectoris

== ENCOUNTER 2017-07-29 14:46 | Inpatient (IN) | payer MEDICARE ==
[~2017-07-29] VITALS: Ht 175.3 cm; Wt 91.2 kg
--- NOTE | ~2017-07-29 | RHP ---
PATIENT: DEONDRE SIMS MEDICAL RECORD: [id number] ACCOUNT: [id number] LOCATION:[facility] : 34 ADMISSION DATE: 07/29/17 REHABILITATION HISTORY AND PHYSICAL EXAMINATION POST ADMISSION PHYSICIAN EXAMINATION DATE OF ADMISSION: 07/29/2017 ADMITTING DIAGNOSES: Cardiac secondary to status post coronary artery bypass grafting. HISTORY OF PRESENT ILLNESS: The patient admitted to inpatient rehab with coronary atherosclerosis, status post coronary artery bypass grafting. This 82-year-old gentleman was admitted for CABG and aortic valve replacement on 07/20/17. He also had aortic valve stenosis and insufficiency. He at some point had some operative complications to acute blood loss anemia. He did require blood transfusion on 07/20/17. On 07/24/17, he had some hypertension, weakness, self-care deficit. He lives in a tri-level home, was completely independent with mobility and ADLs prior to this. He is currently setup for max assist for ADLs and moderate assist to max assist for mobility and use a rolling walker. He and his daughter plan on him returning back to his previous living arrangement. She lives out of town. COMORBIDITIES: In this patient include acute blood loss anemia, bilateral pleural effusions, aortic stenosis, aortic insufficiency, coronary artery disease, hypertension and syncope. PAST MEDICAL HISTORY: Significant for thyroid problems, hypertension, coronary artery disease, past tobacco use and arthritis. PAST SURGICAL HISTORY: Includes hernia repair and foot and arm extremity surgery. ALLERGIES: No known drug allergies. CURRENT MEDICATIONS: Include milk of mag p.r.n., Protonix 40 mg daily, Synthroid 0.5 mcg daily, multivitamin daily, aspirin chewable 81 mg daily, potassium 10 mEq b.i.d., Percocet 5/325 as needed for pain, Colace 100 mg b.i.d., amiodarone 200 mg b.i.d., polyethylene glycol 17 grams in 8 ounces of water daily. HABITS: No current alcohol or tobacco use. FAMILY HISTORY: Noncontributory. SOCIAL HISTORY: The patient hopes to return back home and get back to his prior level of functioning. REVIEW OF SYSTEMS: GENERAL: Does complain of weakness and fatigue. HEENT: Denies cold, cough, or congestion. CARDIOVASCULAR: He denies chest pain. PHYSICAL EXAMINATION: VITAL SIGNS: Stable, afebrile. HISTORY AND PHYSICAL [id number] DEONDRE SIMS GENERAL: A well-developed gentleman in no acute distress, alert upon exam. HEENT: Normocephalic and atraumatic. Mucosa moist. NECK: Supple with no lymphadenopathy. LUNGS: Clear at this time. HEART: Regular rate and rhythm. ABDOMEN: Benign. EXTREMITIES: No clubbing, cyanosis or edema. NEUROLOGIC: He is intact. LABORATORY DATA: Admit labs show a white count of 6.2, H&H 8.7 and 27.0 and platelet count was noted to be 173. His admit chemistry showed sodium 138, potassium 5.1, BUN and creatinine of 24 and 1.1 and blood sugar was noted to be 100. ASSESSMENT: This is an 82-year-old gentleman admitted to the rehab with a working diagnosis of status post coronary artery bypass grafting. The patient has potential to make improvement. We instituted the following multidisciplinary therapies including, but not limited to physical, occupational, respiratory, speech, nutritional services, prosthetics and orthotics. Given his complex medical condition and risks for more complications, rehabilitation services cannot be provided at a lower level of care such as fci facility. PLAN: 1. Admit to [facility] for intensive inpatient therapy to include the following disciplines: A. Physical therapy to improve gait, all transfer skills and bed mobility to a modified independent level. B. Occupational therapy to improve activities of daily living to a modified independent level. C. Case management to assist with discharge planning and placement options. D. Nutrition to assist with nutritional needs. E. Rehabilitation nursing to assist in monitoring the patient's underlying medical conditions and to assist with any type of bowel or bladder management. 2. The patient's current medications and medical care will be continued. 3. The patient will be placed on standard fall precautions. 4. The patient's estimated length of stay is approximately 7-10 days. 5. We will discuss this patient during care team staff meeting this week. TRANSINT:[id number] Voice Confirmation ID: [id number] DOCUMENT ID: [id number] ADDENDUM: The patient was admitted on 07/29/2017. Due to an unforeseen emergency I was unable to document at that time. His medications were adjusted at that time and his TUCKER, his post admission physical examination was dictated at a later date on 08/02/2007. Dictation ID [id number] TUCKER notes whether there has been none or any medical/functional change since admission: - No change since prescreen. TUCKER attests patient continues to be appropriate for IRF: - Continues to be appropriate. HISTORY AND PHYSICAL [id number] DEONDRE SIMS SCOTT MD at 1405 CC: [id number] DICTATION DATE: 08/01/17818 INSTRUMENT MAKER AND REPAIRER: 08/01/17 1223 DIS IN 08/05/17 [place] [place] [address]
--- NOTE | ~2017-07-29 | DS ---
PATIENT:DEONDRE SIMS :33 MEDICAL RECORD: [id number] DISCHARGE SUMMARY ADMISSION DATE: 07/29/17 DISCHARGE DATE: 08/05/17 This is a discharge dated 08/05/2017 from inpatient rehabilitation. PRIMARY DIAGNOSES: Decreased functional ability and inability to provide activities of daily living status post bypass with aortic valve replacement. SECONDARY DIAGNOSES: 1. Coronary artery disease. 2. Aortic stenosis with insufficiency. 3. Acute blood loss anemia. 4. Hypertension. 5. Arthritis. 6. Hypothyroidism. 7. Hypokalemia. CONSULTANTS FOLLOWING THIS HOSPITAL STAY: Dr. Mock with cardiovascular surgery. HOSPITAL COURSE: Full H&P is located elsewhere on the chart on this 82-year-old male who was admitted to inpatient rehab for physical therapy and occupational therapy to improve gait, transfer skills, bed mobility, and activities of daily living to a modified independent level. He was evaluated by PT and OT and their plans of care were followed. He required usp care for observation and assessment, medication administration as well as wound care and monitoring of surgical incisions. Electrolytes were managed by protocol. He was followed by cardiovascular surgery, Dr. Mock during this hospital stay and did receive a transfusion of packed red blood cells for low H&H. He was cooperative with therapies, progressing towards goals. Case management was involved for discharge planning. He was considered stable for discharge on 08/05/2017. DISCHARGE MEDICATIONS: As per discharge medication reconciliation. DISCHARGE DISPOSITION: The patient is discharged home. He will continue his current diet and level of activity and will have home health for continued PT and OT. He will follow up with primary care and specialist as directed. At least 30 minutes was spent in this discharge activity. TRANSINT:[id number] Voice Confirmation ID: [id number] DOCUMENT ID: [id number] Dictated By: TYESHA LOPEZ I have interviewed/examined the above patient and agree with these documented findings. DISCHARGE SUMMARY REPORT [id number] DEONDRE SIMS, DIA FAM at 1710 at 1712 CC: [id number] DICTATION DATE: 08/28/17 1607 BPM SOLUTION ARCHITECT: 08/28/17 1724 DIS IN 08/05/17 [facility] [address] [place] [address]
[~2017-07-29 14:46] MED LIST changes: +CORDARONE200 MG PO; +HEMOCYTE PLUS C1 CAP PO
[2017-07-29] MEDS ORDERED: ASPIRIN81 MG PO (14:50)
[2017-07-29] MEDS ORDERED: PERCOCET 5-3251 TAB PO (14:51)
[2017-07-29] MEDS ORDERED: K-TAB10 MEQ PO (15:05)
[2017-07-29] MEDS ORDERED: COLACE100 MG PO (15:06)
[2017-07-29] MEDS ORDERED: PROTONIX40 MG PO (15:07)
[2017-07-29] MEDS ORDERED: SYNTHROID25 MCG PO (15:07)
[2017-07-29 16:33] VITALS: BP 142/77; BMI 29.7
[2017-07-29 19:00] VITALS: BP 119/67
[2017-07-30 06:36] LABS: BASOPHILS 0.2 % (0-2); EOSINOPHILS 2.6 % (0-7); HEMOGLOBIN 8.7 g/dL (13.5-17.5); IMMATURE GRANULOCYTES 0.6 % (0-5); LYMPHOCYTES 11.7 % (15-50); MCH 27.8 pg (26.0-34.0); MCHC 32.2 g/dL (31.0-37.0); MCV 86.3 fL (80.0-100.0); MONOCYTES 13.7 % (2-11); NEUTROPHILS 71.2 % (40-80); RBC 3.13 10x6/uL (4.20-6.10); RDW 15.6 % (11.5-14.5); WBC 6.2 10x3/uL (4.8-10.8)
[2017-07-30 06:49] LABS: ANION GAP 8.3 mmol/L (8-16); CARBON DIOXIDE 29.8 mmol/L (21.0-32.0); CREATININE - SERUM 1.1 mg/dL (0.6-1.3); POTASSIUM - SERUM 5.1 mmol/L (3.5-5.1)
[2017-07-30 07:00] VITALS: BP 120/50
[2017-07-30 07:02] LABS: PLATELET COUNT 173 10x3/uL (130-400)
[2017-07-30 10:43] VITALS: Ht 175.3 cm; Wt 91.2 kg
[2017-07-30 19:38] VITALS: BP 122/63
[2017-07-31 08:00] VITALS: BP 112/61
[2017-07-31 20:13] VITALS: BP 113/76
[2017-08-01 08:00] VITALS: BP 115/64
[2017-08-01 20:09] VITALS: BP 127/68
[2017-08-02 07:44] VITALS: BP 114/57
[2017-08-02 19:27] VITALS: BP 135/60
[2017-08-03 07:38] VITALS: BP 138/82
[2017-08-03 08:02] LABS: ANION GAP 10.2 mmol/L (8-16); CALCIUM 8.2 mg/dL (8.5-10.1); CARBON DIOXIDE 28.8 mmol/L (21.0-32.0); CREATININE - SERUM 1.2 mg/dL (0.6-1.3)
[2017-08-03 08:57] LABS: BASOPHILS 0.7 % (0-2); EOSINOPHILS 5.7 % (0-7); HEMATOCRIT 28.2 % (42.0-54.0); IMMATURE GRANULOCYTES 0.5 % (0-5); LYMPHOCYTES 17.4 % (15-50); MCH 27.8 pg (26.0-34.0); MCHC 31.9 g/dL (31.0-37.0); MEAN PLATELET VOLUME 9.7 fL (7.4-10.4); MONOCYTES 12.6 % (2-11); NEUTROPHILS 63.1 % (40-80); PLATELET COUNT 227 10x3/uL (130-400); RBC 3.24 10x6/uL (4.20-6.10); RDW 15.5 % (11.5-14.5); WBC 4.2 10x3/uL (4.8-10.8)
[2017-08-03 19:00] VITALS: BP 112/58
[2017-08-04 07:52] VITALS: BP 143/69
[2017-08-04 19:00] VITALS: BP 123/60
[2017-08-05 05:48] LABS: BASOPHILS 0.5 % (0-2); EOSINOPHILS 6.7 % (0-7); HEMATOCRIT 30.5 % (42.0-54.0); HEMOGLOBIN 9.7 g/dL (13.5-17.5); IMMATURE GRANULOCYTES 0.5 % (0-5); LYMPHOCYTES 24.5 % (15-50); MCHC 31.8 g/dL (31.0-37.0); MCV 88.2 fL (80.0-100.0); MEAN PLATELET VOLUME 9.3 fL (7.4-10.4); MONOCYTES 11.1 % (2-11); NEUTROPHILS 56.7 % (40-80); PLATELET COUNT 222 10x3/uL (130-400); RBC 3.46 10x6/uL (4.20-6.10); WBC 3.7 10x3/uL (4.8-10.8)
[2017-08-05 06:24] LABS: ANION GAP 12.2 mmol/L (8-16); CALCIUM 8.5 mg/dL (8.5-10.1); CARBON DIOXIDE 28.9 mmol/L (21.0-32.0); CREATININE - SERUM 1.3 mg/dL (0.6-1.3); POTASSIUM - SERUM 5.1 mmol/L (3.5-5.1)
[2017-08-05 08:19] VITALS: BP 136/70
== END 2017-08-05 12:30 | disposition home health service (06) | DRG 303 ==
LOC: D.REHAB 14:46
PROVIDERS: Emergency Medicine
DX: I25.10 Atherosclerotic heart disease of native coronary artery without angina pectoris (principal); J90 Pleural effusion, not elsewhere classified; D62 Acute posthemorrhagic anemia; J98.11 Atelectasis; I95.9 Hypotension, unspecified; Z95.1 Presence of aortocoronary bypass graft; I10 Essential (primary) hypertension; R53.1 Weakness; I35.0 Nonrheumatic aortic (valve) stenosis; I35.1 Nonrheumatic aortic (valve) insufficiency; R55 Syncope and collapse

== ENCOUNTER → 2018-12-28 10:03 | Outpatient (CLI) | payer OTHER ==
[2017-07-30 10:43] VITALS: BMI 29.7
[~2018-12-28 10:03] MED LIST changes: +ASPIRIN81 MG PO; +COLACE100 MG PO; +K-TAB10 MEQ PO; +PERCOCET 5-3251 TAB PO; +PROTONIX40 MG PO; +SYNTHROID25 MCG PO
== END | disposition home or self-care (01) ==
LOC: D.US 10:03
PROVIDERS: ATTEND Internal Medicine Cardiovascular Disease
DX: I70.213 Atherosclerosis of native arteries of extremities with intermittent claudication, bilateral legs (principal)

== ENCOUNTER → 2019-06-22 09:18 | Outpatient (CLI) | payer OTHER ==
[2017-07-30 10:43] VITALS: BMI 29.7
== END | disposition home or self-care (01) ==
LOC: D.HCCECHO 09:18
PROVIDERS: ATTEND Internal Medicine Cardiovascular Disease
DX: I10 Essential (primary) hypertension (principal)

== ENCOUNTER → 2020-07-01 13:02 | Outpatient (CLI) | payer OTHER ==
[2017-07-30 10:43] VITALS: BMI 29.7
== END | disposition home or self-care (01) ==
LOC: D.HCCECHO 13:02
PROVIDERS: ATTEND Internal Medicine Cardiovascular Disease
DX: I25.10 Atherosclerotic heart disease of native coronary artery without angina pectoris (principal)